=== PATIENT | male | born 1955 | race Caucasian/White ===

== ENCOUNTER 2020-10-09 06:40 | Day surgery (SDC) | payer MEDICARE, OTHER ==
[~2020-10-09] VITALS: Ht 182.9 cm; Wt 86.8 kg
[~2020-10-09 06:40] MED LIST: ADVIL200 MG PO; FLOMAX0.4 MG PO; LEVOFLOXACIN500 MG PO; LISINOPRIL-HCT1 EACH PO; OXYCODON-ACETA1 EAC2 PO; TAMSULOSIN HCL0.4 MG PO; TURMERIC500 M2 PO; ZESTORETIC 20-1 EAC1 PO
--- NOTE | 2020-10-09 09:37 | NUR ---
[facility]20 [facility]37 [facility]IVED IN PACU NON RESPONSIVE TO NOXIOUS STIMULI. ABD SOFT AND PASSING FLATUS. 0855 PT REACTIVE. SITTING UP IN BED WITH NO C/O'S. 0900 UP TO BATHROOM. VOIDED AND PASSING FLATUS. 0910 BACK AT BEDSIDE GETTING DRESSED. 0917 DC INSTRUCTIONS GIVEN. ALL QUESTIONS ANSWERED. LEFT VIA W/C.
--- NOTE | 2020-10-09 10:51 | OR ---
[facility] [address] [place], [place] [address] Signed DATE OF OPERATION: 10/09/2020 SURGEON: Raoul Massey MD PREOPERATIVE DIAGNOSES: 1. Tubular adenomas polyps in 2016. 2. Internal hemorrhoids. 3. Mild cirrhosis associated hepatitis C virus. 4. Negative Cologuard test in April 2019. POSTOPERATIVE DIAGNOSES: 1. 3 mm polyps at 18 cm (rectosigmoid junction). 2. Moderate internal hemorrhoids. PROCEDURE: Colonoscopy with cold biopsy. ESTIMATED BLOOD LOSS: None. INDICATIONS: Brandyn is a 64-year-old gentleman, asked to see me for a followup colonoscopy. He had lived in the [place] area previously. He has had his hepatitis C treated by his weigher production around 2016. Dr. Vane Norwood did his initial colonoscopy in December 2016. He had several tubular adenomatous polyps removed from his right colon. He is known to have internal hemorrhoids as well. He has utilized propofol in the past for his colonoscopy. He was asked to follow up in three years. He underwent a negative Cologuard test in April 2019. He also has chronic pain and uses CBD oil as well as marijuana. He has asymptomatic cholelithiasis. There is no family history of colon cancer or polyps. No specific lower GI complaints. In the office, I gave Brandyn a booklet on colonoscopy. He recalls the nature of that test quite well. There is risk including, but not limited to gas bloating, crampy abdominal pain, bleeding, perforation requiring surgery, and missed diagnosis. He also understands the need for monitored anesthesia care given his advanced medical issues. He had expressed understanding and wished to proceed. PROCEDURE NOTE: Brandyn was taken into our endoscopy suite and placed in the left lateral decubitus position. He was given IV propofol per our nurse social worker assistant. A digital rectal exam was performed and this was not particularly concerning. Very minimal in the external Electronically Signed By: RAOUL MASSEY MD 10/09/20 1051 PATIENT NAME: BRANDYN FINN OPERATIVE REPORT DATE OF : 53 REPORT #: [id number] PHYSICIAN: RAOUL MASSEY MD PCP: AVINASH FAGAN MD REPORT IS CONFIDENTIAL AND NOT TO BE RELEASED WITHOUT AUTHORIZATION [facility] [address], [place] [address] Signed hemorrhoids. Prostate was a little indurated, but not overly concerning. The adult colonoscope was then introduced and advanced around into the cecum under direct visualization of camera without difficulty. His prep was quite excellent. We could easily see the appendiceal orifice and the ileocecal valve. The scope was then slowly withdrawn. We took pictures throughout for photodocumentation. There was no diverticulosis. He had two tiny 3 mm hyperplastic appearing polyps at the rectosigmoid junction. There were easily removed with cold biopsy forceps. The rectum was unremarkable. Upon retroflexion of scope, he does have moderate internal hemorrhoid columns. After this, the gas was suctioned out and colonoscope removed. Brandyn tolerated the procedure quite well. RECOMMENDATIONS: I will see Brandyn back in my office in 7 to 14 days to review his results. I suspect he will be on the 5-year rotation given his personal history. Raoul Massey MD ALB/MODL /[id number] cc: MD Avinash Birmingham MD Copies: RAOUL MASSEY MD, MALCOLM MD ~ Electronically Signed By: RAOUL MASSEY MD 10/09/20 1051 PATIENT NAME: BRANDYN FINN OPERATIVE REPORT DATE OF : 53 REPORT #: [id number] PHYSICIAN: RAOUL MASSEY MD PCP: AVINASH FAGAN MD REPORT IS CONFIDENTIAL AND NOT TO BE RELEASED WITHOUT AUTHORIZATION
--- NOTE | 2020-10-10 11:52 | PATH ---
[facility] [address] [place], [place] [address] Signed SPECIMEN(S): A RECTAL POLYP AT 18 CM SPECIMEN SOURCE: A. RECTAL POLYP AT 18 CM CLINICAL HISTORY: History of polyps. Rectal polyps, internal hemorrhoids. MICROSCOPIC DESCRIPTION: Histologic sections of all submitted blocks are examined by light microscopy. These findings, together with the gross examination, support the pathologic diagnosis. FINAL PATHOLOGIC DIAGNOSIS: Rectum, polyp at 18 cm, polypectomy: - Fragments of hyperplastic polyp. - Negative for dysplasia or malignancy. NAL:cml:C2NR GROSS DESCRIPTION: The specimen, labeled "WONG, rectal polyp at 18 cm," is received in formalin and consists of two lima soft tissue fragments that measure 0.1 cm in greatest dimension. The specimen is entirely submitted in cassette (A1). JS (under the direct supervision of a pathologist) The Gross Description was prepared using a voice recognition system. The report was reviewed for accuracy; however, sound-alike word errors, addition and/or deletions may occur. If there is any question about this report, please contact Client Services. PERFORMING LABORATORY: The technical component was performed by [facility], [address] [place] [id number] (Director Of Student Life: Rox Herzog MD; CLIA# [id number]). Professional interpretation [facility], [address] [address] (CLIA# [id number]). Diagnostician: Dona Paige MD Pathologist Electronically Signed 10/10/2020 PATIENT NAME: SIGRID FINN PATHOLOGY DATE OF : 53 REPORT #: [id number] PHYSICIAN: [facility] PCP: WALLY FAGAN MD REPORT IS CONFIDENTIAL AND NOT TO BE RELEASED WITHOUT AUTHORIZATION [address] [place], [place] [address] Signed Copies: ~ PATIENT NAME: SIGRID FINN PATHOLOGY DATE OF : 53 REPORT #: [id number] PHYSICIAN: [facility] PCP: WALLY FAGAN MD REPORT IS CONFIDENTIAL AND NOT TO BE RELEASED WITHOUT AUTHORIZATION
== END 2020-10-09 09:17 | disposition home or self-care (01) ==
LOC: DS 06:40 → OPS 06:40 → DS 09:30
PROVIDERS: ATTEND Colon & Rectal Surgery
PROC: 0DBP8ZX Excision of Rectum, Via Natural or Artificial Opening Endoscopic, Diagnostic (ICD-10-PCS; principal; 2020-10-09 08:15)
DX: K62.1 Rectal polyp (principal); K64.0 First degree hemorrhoids; K74.60 Unspecified cirrhosis of liver; B19.20 Unspecified viral hepatitis C without hepatic coma; Z87.19 Personal history of other diseases of the digestive system; G89.29 Other chronic pain; J43.9 Emphysema, unspecified
CPT/HCPCS: 88305; J2001; J2704

== ENCOUNTER 2020-12-16 03:10 | Emergency (ER) | payer MEDICARE, OTHER ==
[~2020-12-16] VITALS: Ht 182.9 cm; Wt 84.4 kg
== END 2020-12-16 05:05 | disposition home or self-care (01) ==
LOC: ED 03:10
PROC: 0T2BX0Z Change Drainage Device in Bladder, External Approach (ICD-10-PCS; principal; 2020-12-16)
DX: R33.9 Retention of urine, unspecified (principal); I10 Essential (primary) hypertension; Z79.899 Other long term (current) drug therapy
CPT/HCPCS: 51702; 51798; 81001; 99283-25

== ENCOUNTER 2022-05-19 19:08 | Emergency (ER) | payer MEDICARE, OTHER ==
[~2022-05-19] VITALS: Ht 182.9 cm; Wt 84.0 kg
[2022-05-19] MEDS ORDERED: LACTULOSE10 GM/152 PO (22:20)
== END 2022-05-19 22:31 | disposition home or self-care (01) ==
LOC: ED 19:08
DX: K59.00 Constipation, unspecified (principal); I10 Essential (primary) hypertension
CPT/HCPCS: 36415; 74018; 80053; 85025; 96374; 99283-25; J1885

== ENCOUNTER 2022-05-25 11:42 | Emergency (ER) | payer MEDICARE, OTHER ==
[~2022-05-25] VITALS: Ht 182.9 cm; Wt 84.0 kg
[~2022-05-25 11:42] MED LIST changes: +LACTULOSE10 GM/152 PO
--- OUTSIDE RECORDS SUMMARY | 2022-05-25 11:44 | XMS ---
PreManage Notification: SIGRID FINN Security Exploration Manager Events No recent Security Events currently on file CRITERIA MET - [facility] - 2 Visits in 30 Days CARE PROVIDERS There are no care providers on record at this time. Rodolfo has no Care Guidelines for this patient. Carri VISIT COUNT (12 MO.) 2 [facility] [place] [facility] TOTAL 2 NOTE: Visits indicate total known visits. ED/C VISIT TRACKING (12 MO.) 05/25/2022 11:43 [facility] [place] TYPE: Emergency COMPLAINT: - UNABLE TO URINATE, CONSTIPATED 05/19/2022 19:09 [facility] [place] TYPE: Emergency COMPLAINT: - CONSTIPATION DIAGNOSES: - Constipation, unspecified - Essential (primary) hypertension INPATIENT VISIT TRACKING (12 MO.) No inpatient visits to display in this time frame [email or web address]
[2022-05-25] MEDS ORDERED: LISINOPRIL-HCT1 EACH PO (12:17)
== END 2022-05-25 13:45 | disposition home or self-care (01) ==
LOC: ED 11:42
DX: R33.9 Retention of urine, unspecified (principal); I10 Essential (primary) hypertension; Z79.899 Other long term (current) drug therapy
CPT/HCPCS: 36415; 51702; 80053; 83690; 85025; 99283-25; J1170

== ENCOUNTER 2023-09-09 20:10 | Inpatient (IN) | payer MEDICARE, OTHER ==
[~2023-09-09] VITALS: Ht 182.9 cm; Wt 83.9 kg
[~2023-09-09 20:10] MED LIST changes: +INDAPAMIDE1.25 MG PO; +IRBESARTAN150 MG PO
[2023-09-09] MEDS ORDERED: ondansetron HCL 4 MG/2 ML VIAL IV ONE (20:30)
[2023-09-09] MEDS ORDERED: SODIUM CHLORIDE 0.9% 1,000 ML IV SCH (20:45)
[2023-09-09] MEDS ORDERED: HYDROmorphone HCL 1 MG/ML SYR IV PRN ×2 (20:45→22:00)
[2023-09-09 20:54] LABS: ALBUMIN 4.1 g/dL (3.4-5.0); ALBUMIN/GLOBULIN RATIO 1.24 (1.1-2.4); ALKALINE PHOSPHATASE 62 U/L (46-116); ALT (SGPT) 17 U/L (14-59); ANION GAP 15.5 (7-21); AST (SGOT) 22 U/L (15-37); BILIRUBIN, TOTAL 1.1 ng/dL (0.2-1.0); BUN/CREATININE RATIO 21.21 (6.0-28.6); CALCIUM 9.1 mg/dL (8.5-10.1); CARBON DIOXIDE 24 mmol/L (21-32); CHLORIDE 101 mmol/L (98-107); CREATININE, SERUM 1.32 mg/dL (0.70-1.30); GLOMERULAR FILTRATION RATE,EST 59 mL/min (>60); POTASSIUM 3.5 mmol/L (3.5-5.1); PROTEIN, TOTAL 7.4 g/dL (6.4-8.2); UREA NITROGEN 28 mg/dL (7-18)
[2023-09-09 20:55] LABS: BASOPHILS 0.5 % (0-2); EOSINOPHILS 1.7 % (0-6); HEMATOCRIT 33.6 % (35.0-50.0); HEMOGLOBIN 11.9 g/dL (12.0-18.0); LYMPHOCYTES 19.6 % (24-44); MCH 33.4 (27-36); MCHC 35.5 g/dl (30-36); MCV 94.1 fl (81-99); MONOCYTES 7.2 % (0-12); PLATELET COUNT 158 K/uL (140-440); RBC 3.57 M/ul (4.3-5.7); RDW 12.8 (10.5-15.0)
[2023-09-09] MEDS ORDERED: LACTATED RINGER'S 1,000 ML IV SCH (22:00)
[2023-09-09] MEDS ORDERED: ondansetron HCL 4 MG/2 ML VIAL IV PRN (22:00)
--- NOTE | 2023-09-09 22:45 | NUR ---
pt arrived from ed via with ed rn denise, pt self transferred from wc to bed. admission completed by this rn, bed side report given then to primary rn koffi. iv site wnl, saline locked. janette at bedside, preparing to leave for the evening. call light in reach, poc discussed.
--- NOTE | 2023-09-09 22:50 | NUR ---
pt ARRIVED TO THE FLOOR VIA STRETCHER. pt TRANSFERED TO THE BED SBA. ADMISSION AND ASSESSMENT DONE. VITAL SIGNS DONE. MIDLINE INCISION CDI. pt DENIES ANY OTHER NEEDS AT THIS TIME. CALL LIGHT WITHIN REACH. IV ASSESSED, WNL. IVF STARTED, INFUSING PER ORDER, SEE MAR.
[2023-09-09 22:53] VITALS: BP 160/87
[2023-09-10] VITALS (10 sets, daily range): BP systolic 132–160; BP diastolic 79–89
--- NOTE | 2023-09-10 00:05 | NUR ---
FINANCIAL SALES ASSISTANT PUT PT ON CPOX. PT STATES NO FURTHER NEEDS AT THIS TIME. CALL LIGHT WITHIN REACH.
--- NOTE | 2023-09-10 01:12 | NUR ---
CALL LIGHT ANSWERED. PT NEEDED TO USE BATHROOM. PROPERTY ADMINISTRATOR SBA PT TO BATHROOM. URINE SAMPLE COLLECTED AND SENT TO LAB. PT BACK IN BED. PROPERTY ADMINISTRATOR RECONNECTED CPOX. PT STATES NO FURTHER NEEDS AT THIS TIME. CALL LIGHT PLACED WITHIN REACH.
[2023-09-10 01:14] LABS: BILIRUBIN, URINE NEGATIVE (negative); BLOOD/HGB, URINE NEGATIVE (Negative); KETONE, URINE NEGATIVE (Negative); LEUK ESTERASE, URINE NEGATIVE (negative); NITRITE, URINE NEGATIVE (negative)
[2023-09-10 01:23] LABS: EPITHELIAL CELLS, URINE SQUAMOUS 1+ /lpf (0-1+)
[2023-09-10 01:24] LABS: BACTERIA, URINE RARE /hpf (negative); CASTS, URINE NONE SEEN \\lpf; COLLECTION TYPE, URINE CLEAN CATCH; CRYSTALS, URINE NONE SEEN (0-1+); RED BLOOD CELLS, URINE 0-1 /hpf (0-5); REFLEX CULTURE, URINE No (No); WHITE BLOOD CELLS, URINE 0-1 /HPF (0-5)
--- NOTE | 2023-09-10 01:55 | NUR ---
CELL LEAD OBTIANED VITALS AND NO NEW INTAKE NOTED. PT STATES NO FURTHER NEEDS AT THIS TIME. CALL LIGHT WITHIN REACH.
--- NOTE | 2023-09-10 03:33 | NUR ---
pt REQUESTED PRN PAIN MEDICATION. PRN PAIN MEDICATION ADMINISTERED. pt DENIES ANY OTHER NEEDS AT THIS TIME. CALL LIGHT WITHIN REACH. CALL LIGHT WITHIN REACH.
--- NOTE | 2023-09-10 06:00 | NUR ---
pt RESTED IN THE BED MOST OF THE NIGHT. pt REQUESTED PRN PAIN MEDICATION WHEN NEEDED. SBA FOR LINE/TUBE MANAGEMENT. MIDLINE INCISION CDI.
[2023-09-10 06:05] LABS: BASOPHILS 0.9 % (0-2); LYMPHOCYTES 19.2 % (24-44); MCH 32.8 (27-36); MCHC 34.3 g/dl (30-36); MCV 95.6 fl (81-99); MONOCYTES 7.8 % (0-12); NEUTROPHILS 70.1 % (39-80); PLATELET COUNT 165 K/uL (140-440); RBC 3.66 M/ul (4.3-5.7); RDW 13.1 (10.5-15.0)
[2023-09-10] MEDS ORDERED: HYDROCODONE/APAP 10/325 1 TAB PO PRN (06:15)
[2023-09-10] MEDS ORDERED: HYDROmorphone HCL 1 MG/ML SYR IV PRN (06:15)
[2023-09-10] MEDS ORDERED: DEXTROSE 5% - LACTATED RINGERS 1,000 ML IV SCH (06:15)
[2023-09-10] MEDS ORDERED: ACETAMINOPHEN 325 MG TAB PO PRN (06:15)
[2023-09-10] MEDS ORDERED: ondansetron HCL 4 MG/2 ML VIAL IV PRN (06:15)
[2023-09-10] MEDS ORDERED: PROCHLORPERAZINE EDISYLATE 10 MG/2 ML VIAL IV PRN (06:15)
[2023-09-10] MEDS ORDERED: ACETAMINOPHEN 650 MG SUPP PR PRN (06:15)
[2023-09-10 06:21] LABS: ALBUMIN 3.5 g/dL (3.4-5.0); ALBUMIN/GLOBULIN RATIO 1.13 (1.1-2.4); ANION GAP 12.9 (7-21); BUN/CREATININE RATIO 21.18 (6.0-28.6); CALCIUM 8.3 mg/dL (8.5-10.1); CREATININE, SERUM 1.18 mg/dL (0.70-1.30); MAGNESIUM 1.6 mg/dL (1.8-2.4); PHOSPHORUS, INORGANIC 3.4 mg/dL (2.5-4.9); POTASSIUM 3.9 mmol/L (3.5-5.1); PROTEIN, TOTAL 6.6 g/dL (6.4-8.2)
--- NOTE | 2023-09-10 07:20 | CONS ---
[facility] [address] [place], [place] [address] Signed DATE OF CONSULTATION: 09/10/2023 CHIEF COMPLAINT: Epigastric abdominal pain. HISTORY OF PRESENT ILLNESS: Brandyn is a 67-year-old gentleman, who came to us just two days ago to repair his umbilical hernia. It was very straightforward. He had a fascial defect around 10, 12 mm. We used our typical mesh. We did have to amputate a small amount of omentum, which is quite common. He had been discharged to home. He had called the office concerned about constipation, nausea, and vomiting. He tried several different medications at home without success. He then came to emergency room for evaluation. In the emergency room, it was found that his labs were fine except his lipase was greater than 375. A CT scan was performed. He does have a gallbladder full of gallstones. The gallbladder wall is not thickened. The common bile duct is unremarkable. There is no inflammation of the pancreas. The rest of his labs were unremarkable. I have been asked by the ER physician to admit him with respect to the above. He has been admitted overnight with some IV fluid and he seems to be doing well. PAST MEDICAL HISTORY: Personal history of colonic polyps. Personal history hepatitis C that has been treated, kidney stones. He has borderline liver function tests. He has pulmonary emphysema and chronic pain. He has mild cirrhosis of the liver. He had a bladder injury during cystoscopy that required repair. We know the ascending aorta is about 4.25 cm. The left ventricular ejection fraction is 60%. PAST SURGICAL HISTORY: Multiple colonoscopies, repair of bladder laceration in May 2020. He has had a liver biopsy in 2000. He just had his umbilical hernia repair two days ago. SOCIAL HISTORY: He is . Dr. Avinash Shearer is his primary care provider. His is Maegan at [phone]. ALLERGIES: None. MEDICATIONS: His medications are irbesartan 150 mg p.o. at bedtime, and indapamide 1.25 mg p.o. q.a.m. REVIEW OF SYSTEMS: He had 10 systems reviewed, really no other issues that he mentioned today. Electronically Signed By: RAOUL KIRKPATRICK MD 09/10/23 0720 PATIENT NAME: BRANDYN FINN CONSULTATION DATE OF : 53 REPORT #: [id number] PHYSICIAN: RAOUL KIRKPATRICK MD PCP: AVINASH SHEARER MD REPORT IS CONFIDENTIAL AND NOT TO BE RELEASED WITHOUT AUTHORIZATION [facility] [address] [place] [address] Signed FAMILY HISTORY: His dad had emphysema. His mom had breast cancer. His brother has a history of cocaine use and hepatitis C. It sounds like one brother may have had cancer related to hepatitis B and/or lung cancer. PHYSICAL EXAMINATION: VITAL SIGNS: His blood pressure is 146/89, heart rate 69, respiratory rate 14, temperature 97.9, he is 95% on room air. He is 6 feet tall, 83 kg with a body mass index of 25. GENERAL: Brandyn is a 67-year-old gentleman, lying supine semi-recumbent in his hospital bed, watching TV. He is in no acute distress. He is not jaundiced. LUNGS: Clear to auscultation bilaterally. HEART: Regular rate and rhythm without murmurs. ABDOMEN: Generally flat, soft and nontender. He has some mild epigastric tenderness and some very mild expected incisional tenderness. Incisions without any local signs or symptoms of infection or drainage. LABORATORY DATA: His white blood count 7.4, hemoglobin 11.9, neutrophils 71. BUN 28, creatinine 1.32, glucose 122. Urinalysis negative. His alcohol was less than 3. Total bilirubin 1.1, AST 22, ALT 17, alkaline phosphatase 62, lipase greater than 375, albumin is 4.1. RADIOGRAPHIC STUDIES: CT scan and pelvis is reviewed. Unfortunately, I cannot see the images this morning as I could not connect to the computer. However, the radiologist describes multiple calcified gallstones in the gallbladder, but the gallbladder wall is not thickened. There is no pericholecystic fluid. The common bile duct is unremarkable and there is no inflammation to the pancreas. ASSESSMENT AND PLAN: Brandyn is a 67-year-old gentleman, who presents with what looks like possibly some mild gallstone related pancreatitis two days after his umbilical hernia surgery. It also could be related to indapamide, although he has taken that for quite some time. At this point, we are going to treat him conservatively with IV fluids and clear liquid diet and repeat his labs and we will follow him along. He is aware that if his gallstones are symptomatic, we could certainly take his gallbladder out on this admission. Otherwise we are going to see if we can treat him conservatively. He has expressed understanding and agrees above plan. Raoul Kirkpatrick MD Electronically Signed By: RAOUL KIRKPATRICK MD 09/10/23 0720 PATIENT NAME: BRANDYN FINN CONSULTATION DATE OF : 53 REPORT #: [id number] PHYSICIAN: RAOUL KIRKPATRICK MD PCP: AVINASH SHEARER MD REPORT IS CONFIDENTIAL AND NOT TO BE RELEASED WITHOUT AUTHORIZATION [address] [place] [address] Signed ALB/MODL /[id number] cc: MD Raoul Smith MD Patient Chart Copies: AVINASH SHEARER MD, ANDREW L MD ~ Electronically Signed By: RAOUL KIRKPATRICK MD 09/10/23 0720 PATIENT NAME: BRANDYN FINN CONSULTATION DATE OF : 53 REPORT #: [id number] PHYSICIAN: RAOUL KIRKPATRICK MD PCP: AVINASH SHEARER MD REPORT IS CONFIDENTIAL AND NOT TO BE RELEASED WITHOUT AUTHORIZATION
--- NOTE | 2023-09-10 07:25 | NUR ---
RECEIVED REPORT FROM LARY ARECHIGA. SECOND RN SKIN ASSESSMENT COMPLETED AT THIS TIME, MIDLINE INCISION EDGES WELL APPROXIMATED, NO REDNESS OR DRAINAGE PRESENT. PT STATES NO CURRENT NEEDS, CALL LIGHT WITHIN REACH.
[2023-09-10] MEDS ORDERED: LOSARTAN POTASSIUM 50 MG TAB PO SCH (09:00)
[2023-09-10] MEDS ORDERED: ENOXAPARIN SODIUM 40 MG/0.4 ML SYR SUB-Q SCH (09:00)
[2023-09-10] MEDS ORDERED: PANTOPRAZOLE SODIUM 40 MG/10 ML VIAL IV SCH (09:00)
--- NOTE | 2023-09-10 09:04 | NUR ---
SPOKE TO PATIENT ABOUT THE DISCHARGE PLAN. PATIENT'S DEMOGRAPHICS ARE CORRECT. PATIENT LIVES WITH HIS AND HAS FRIENDS AND FAMILY AVAILABLE TO HELP IF NEEDED. PATIENT DOES NOT WANT PLACEMENT, PATIENT DOES NOT USE DME. PATIENT DOES NOT HAVE FINANCIAL CONCERNS.PATIENT DRIVES AND DOES HIS OWN ADLS. PATIENT HAS NO DISCHARGE NEEDS AT THIS TIME.
--- NOTE | 2023-09-10 09:14 | NUR ---
med rec complete.
--- NOTE | 2023-09-10 10:30 | NUR ---
PT SEMIFOWLER. PT C/O NAUSEA AND RLQ AND LLQ PAIN, GIVEN PRN PAIN AND NAUSEA MEDICATION AT THIS TIME. ABDOMEN MILDLY DISTENDED, TENDER TO PALPATION, ACTIVE BOWEL TONES. PT STATES NO NEEDS AT THIS TIME, CALL LIGHT WITHIN REACH.
--- NOTE | 2023-09-10 10:41 | NUR ---
UR CLINICAL REVIEW: [facility]MN [facility] INPATIENT MEDICARE FROM OBS TO INPT 09/10/23 @ 0607 ORDER MATCHES STATUS NO AUTH REQUIRED PER MEDICARE RULES PLAN TO DC TO HOME WHEN STABLE
--- NOTE | 2023-09-10 11:44 | NUR ---
VISITED DURING SPIRITUAL CARE ROUNDS. PT APPEARED TO BE SLEEPING. DID NOT DISTURB. PROVIDED PRAYER.
--- NOTE | 2023-09-10 14:50 | NUR ---
IV WRAPPED FOR SHOWER, SHOWER SUPPLIES PROVIDED. PT STATES NO FURTHER NEEDS AT THIS TIME, CALL LIGHT WITHIN REACH.
--- NOTE | 2023-09-10 15:05 | NUR ---
PATIENT USED CALL LIGHT TO SAY HE NEEDED TO GET THE PHONE AND WASH HIS HANDS. ZINC PLATE GRAINER WENT INTO ROOM AND PATIENT WAS VERY FRUSTRATED WITH CARE THAT HAS BEEN PROVIDED TODAY. ZINC PLATE GRAINER HELPED PATIENT WITH ANSWERING PHONE. PATIENT THEN ACCUSED ZINC PLATE GRAINER OF EAVSDROPPING ON HIS CALL WITH HIS AFTER PHONE CALL WAS COMPLETED. ZINC PLATE GRAINER THEN ASKED WHAT HE NEEDED HELP WITH AND HE STATED THAT HE HAS BEEN ASKING FOR A SHOWER FOR HOURS AND THAT THE STAFF HERE HAS NOT BEEN HELPING HIM. PATIENT THEN PROCEEDED TO CALL ZINC PLATE GRAINER A "HALF ASS WORKER" AND ZINC PLATE GRAINER WANT TO BRING A NURSE INTO ROOM AT THIS TIME. RN TOOK OVER PATIENTS ROOM FROM THERE.
--- NOTE | 2023-09-10 15:10 | NUR ---
THIS RN NOTIFIED BY MOR MARTIN OF PT STATING THAT SHIELD INSTALLER IS LISTENING TO HIS PHONE CALL AFTER CALLING SHIELD INSTALLER TO ROOM. THIS RN ENTERS ROOM, PT STATES HE IS VERY FRUSTRATED D/T NOT BEING ABLE TO SHOWER YET TODAY AND BECAUSE HE IS COLD AND STATES THE STAFF HAS "NOT BEEN DOING ANYTHING ABOUT ANY OF IT". THIS RN STATES THAT SHE DOES NOT RECALL THESE ISSUES BEING BROUGHT UP PRIOR TO THIS CONVERSATION, STATES THAT SHE WILL BRING IN SHOWER SUPPLIES AND ASSIST HIM WITH GETTING READY FOR SHOWER. D/T PT BEING INDEPENDENT AT HOME AND D/T PT BEING STEADY ON FEET AND HAVING PAIN/NAUSEA LIMITED AT THIS TIME PT EDUCATED ON BEING INDEPENDENT IN THE ROOM LONG HE FEELS STEADY. PT VERBALIZES UNDERSTANDING OF USE OF CALL LIGHT AND TO CALL TO ASK FOR THINGS HE WANTS/NEEDS. PT EDUCATION ON TREATMENT OF STAFF, PT VERBALIZES UNDERSTANDING AND STATES HE IS "SORRY FOR BEING AN ASS" AND STATES HE IS "USED TO RUNNING THE SHOW, SO NOT BEING ABLE TO RUN THE SHOW HERE IS MAKING ME UPSET". PT EDUCATION ON POLICIES AND PROCEDURES UTILIZED ON THIS UNIT FOR SAFETY AND CARE, PT VERBALIZES UNDERSTANDING. SEE NOTE ABOUT SHOWER FOR CONTINUED CARE. CALL LIGHT WITHIN REACH.
--- NOTE | 2023-09-10 15:59 | NUR ---
MED REC COMPLETE
--- NOTE | 2023-09-10 19:10 | NUR ---
REPORT RECEIVED FROM KRISTIAN BARTH. pt RESTING IN THE BED. BOARD UPDATED. CALL LIGHT WITHIN REACH.
--- NOTE | 2023-09-10 20:50 | NUR ---
ASSESSMENT AND VITAL SIGNS DONE. pt C/O 10/08 PAIN. PRN PAIN MEDS ADMINISTERED. pt BOWEL TONES HYPOACTIVE. MIDLINE EDGES WILL APPROXAMATED. pt DENIES ANY OTHER NEEDS AT THIS TIME. CALL LIGHT WITHIN REACH.
--- NOTE | 2023-09-10 23:15 | NUR ---
pt RESTING IN THE BED WITH EYES CLOSED. RR EVEN AND UNLABORED. CALL LIGHT WITHIN REACH.
[2023-09-11] VITALS (7 sets, daily range): BP systolic 136–150; BP diastolic 74–89
--- NOTE | 2023-09-11 01:30 | NUR ---
pt RESTING IN THE BED WITH EYES CLOSED. RR EVEN AND UNLABORED. CALL LIGHT WITHIN REACH.
--- NOTE | 2023-09-11 04:44 | NUR ---
IN RM TO CHECK ON pt. pt C/O 10/08 PAIN. PRN PAIN MEDS ADMINISTERED. NO OTHER NEEDS AT THIS TIME. CALL LIGHT WITHIN REACH.
--- NOTE | 2023-09-11 05:32 | NUR ---
SKIVER UPPERS OR LININGS OBTAINED VITALS AND I&O. PT STATES NO FURTHER NEEDS AT THIS TIME. CALL LIGHT WITHIN REACH.
--- NOTE | 2023-09-11 07:15 | NUR ---
RECEIVED REPORT FROM LARY ARECHIGA. PT AWAKE IN BED, STATES NO NEEDS AT THIS TIME. PT STATES HE HAS BEEN PASSING GAS, BUT HAS NOT HAD A BM YET. CALL LIGHT WITHIN REACH.
[2023-09-11] MEDS ORDERED: PANTOPRAZOLE SODIUM 40 MG TABEC PO SCH (09:00)
--- NOTE | 2023-09-11 09:00 | NUR ---
PATIENT IN BED THIS AM. VITALS AND I/O'S COMPLETED, PATIENT HAS NO OTHER REQUESTS AT THIS TIME AND REFUSED ICE WATER AT THIS TIME. CALL LIGHT WITHIN REACH.
--- NOTE | 2023-09-11 10:00 | NUR ---
PT AWAKE IN BED, STATES HE IS HAVING HEADACHE AND SHOULDER PAIN AT 8/10, REQUESTS PRN PAIN MEDICATION, GIVEN. PT DENIES NAUSEA AT THIS TIME. ABDOMEN REMAINS MILDLY DISTENDED, TENDER TO PALPATION, BOWEL TONES ACTIVE. MIDLINE INCISION REMAINS DRY WITH EDGES WELL APPROXIMATED. PT REQUESTS FULL LIQUID SNACKS, GIVEN, EDUCATION ON TAKING IN FOOD SLOWLY, PT VERBALIZES UNDERSTANDING. PT STATES NO FURTHER NEEDS AT THIS TIME. CALL LIGHT WITHIN REACH.
--- NOTE | 2023-09-11 14:24 | NUR ---
PT REQUESTS ICE WATER, GIVEN. PT STATES NO FURTHER NEEDS AT THIS TIME, CALL LIGHT WITHIN REACH.
--- NOTE | 2023-09-11 15:42 | NUR ---
PT LYING IN BED AWAKE WATCHING TV. PT STATES NO PASSING GAS OR BM YET, BUT FEELS LIKE THINGS "MIGHT START MOVING SOON". PT DENIES PAIN AND NAUSEA AT THIS TIME. EDGES OF MIDLINE INCISION REMAIN WELL APPROXIMATED, NO CHANGE SINCE THIS MORNING. PT STATES HE IS COLD AND WOULD LIKE THERMOSTAT TURNED UP WELL A WARM BLANKET, THERMOSTAT TURNED UP, WARM BLANKET PROVIDED. PT STATES NO FURTHER NEEDS OR QUESTIONS AT THIS TIME, CALL LIGHT WITHIN REACH.
--- NOTE | 2023-09-11 18:45 | NUR ---
PT STATES HE IS FEELING NAUSEAS, DECLINES ANTINAUSEA MEDICATION AT THIS TIME. PT STATES NO CURRENT NEEDS, CALL LIGHT JEFFERY MAN.
--- NOTE | 2023-09-11 19:30 | NUR ---
REPORT RECEIVED FROM DAY SHIFT RN. PT LYING IN BED ALERT AND ORIENTED. DENIES NEEDS. WHITE BOARD UPDATED. CALL LIGHT IN REACH.
--- NOTE | 2023-09-11 19:36 | NUR ---
Board has been updated and call light has been placed within reach. No request from patient at this time.
--- NOTE | 2023-09-11 21:30 | NUR ---
EVENING ASSESSMENT COMPLETE. PT REPORTS SHOULDER/BACK PAIN 09/07. REFUSES PRN FOR PAIN WHEN OFFERED. REPORTS NAUSEA, REFUSES MEDS WHEN OFFERED. PT BELIEVES MEDICATIONS ARE CAUSING CONSTIPATION. ATTEMPTED TO EDUCATE. PT NOT RECEPTIVE. BOWEL TONES ACTIVE. ABD SLIGHTLY DISTENDED. PT REPORTS FLATUS. MIDLINE ABD INCISION WELL APPROXIMATED. NO REDNESS OR DRAINAGE NOTED. PT REPORTS TAKING ONLY SIPS OF WATER. IVF INFUSING PER ORDER. NO FURTHER NEEDS. CALL LIGHT IN REACH.
--- NOTE | 2023-09-12 00:10 | NUR ---
PATIENTS PUMP ALARMING. PATIENT IS RESTING IN BED WATCHING TV. PATIENT REPORTS NEEDING TO HAVE A BM IN THE NEXT COUPLE HOURS. PATIENT REPORTS FEELING WEAK AND HAS CONCERN ABOUT WALKING TO THE BR. BSC SET UP NEXT TO BED. PATIENT STATED "I WILL CALL WHEN I AM READY". NO FURTHER NEEDS NOTED. CALL LIGHT IN REACH.
--- NOTE | 2023-09-12 00:30 | NUR ---
PATIENT UP TO BEDSIDE COMMODE.
--- NOTE | 2023-09-12 00:58 | NUR ---
PT ABLE TO HAVE LARGE SOFT BROWN BM. BACK TO BED, AARON WELL. STATES HE FEELS BETTER AFTER BM. NO FURTHER NEEDS.
--- NOTE | 2023-09-12 02:06 | NUR ---
PATIENT INSISTS ON TAKING A SHOWER AT THIS TIME. SHOWER SET UP. PATIENT AMBULATES WELL WITH STEADY GAIT. THIS RN SUPERVISED ASSIST TO BATHROOM. HE HAS ANOTHER BM SOFT UNFORMED, NOT LIQUID.
--- NOTE | 2023-09-12 03:50 | NUR ---
PT RESTING IN BED WITH EYES CLOSED. RESPIRATIONS EVEN. CALL LIGHT IN REACH.
[2023-09-12 04:59] VITALS: BP 140/78
--- NOTE | 2023-09-12 05:08 | NUR ---
CALL LIGHT ANSWERED. PT STATES "I'M STARVING." PUDDING PROVIDED PER REQUEST. NO C/O PAIN OR NAUSEA AT THIS TIME. PT STATES "I FEEL SO MUCH BETTER THIS MORNING." VS AND I&O OBTAINED, WNL. ABD ASSESSMENT UNCHANGED. PT DENIES FURTHER NEEDS. CALL LIGHT IN REACH.
[2023-09-12 05:34] LABS: BASOPHILS 0.6 % (0-2); EOSINOPHILS 4.4 % (0-6); HEMOGLOBIN 11.5 g/dL (12.0-18.0); LYMPHOCYTES 17.9 % (24-44); MCH 33.6 (27-36); MCHC 35.9 g/dl (30-36); MCV 93.4 fl (81-99); NEUTROPHILS 68.1 % (39-80); PLATELET COUNT 144 K/uL (140-440); RBC 3.42 M/ul (4.3-5.7); RDW 12.7 (10.5-15.0)
[2023-09-12 05:50] LABS: ALBUMIN/GLOBULIN RATIO 0.91 (1.1-2.4); ANION GAP 9.5 (7-21); BILIRUBIN, TOTAL 1.3 ng/dL (0.2-1.0); BUN/CREATININE RATIO 10.07 (6.0-28.6); CALCIUM 8.6 mg/dL (8.5-10.1); CREATININE, SERUM 1.29 mg/dL (0.70-1.30); MAGNESIUM 1.5 mg/dL (1.8-2.4); PHOSPHORUS, INORGANIC 2.5 mg/dL (2.5-4.9); POTASSIUM 3.5 mmol/L (3.5-5.1); PROTEIN, TOTAL 6.3 g/dL (6.4-8.2)
--- NOTE | 2023-09-12 07:10 | NUR ---
RECEIVED REPORT FROM LARY FINNEY.
--- NOTE | 2023-09-12 07:35 | NUR ---
PT SITTING UP IN BED AWAKE, STATES NO NEEDS AT THIS TIME, CALL LIGHT WITHIN REACH.
--- NOTE | 2023-09-12 09:27 | NUR ---
PT AWAKE AND UP IN ROOM. PT DENIES PAIN OR NAUSEA AT THIS TIME. PT STATES HE HAS BEEN HAVING BMs SINCE LAST NIGHT, BOWEL TONES ACTIVE, ABDOMEN MILDLY DISTENDED, TENDER TO PALPATION. PT STATES NO NEEDS AT THIS TIME, STATES HE IS EXCITED TO GO HOME TODAY. IV DC'D WNL, WRAPPED IN GAUZE AND COBAN. DC PACKET AND EDUCATION GIVEN, PT VERBALIZES UNDERSTANDING, STATES NO QUESTIONS AT THIS TIME. PT'S CALLED TO COME FOR PT. PT STATES NO FURTHER NEEDS AT THIS TIME, CALL LIGHT WITHIN REACH.
[2023-09-12 09:43] VITALS: BP 143/86
--- NOTE | 2023-09-12 10:10 | NUR ---
PT UP TO WHEELCHAIR INDEPENDENTLY, WHEELED TO FRONT OF BUILDING BY NURSING PERSONEL.
--- NOTE | 2023-09-14 07:33 | DS ---
[facility] [address], [place] [address] Signed ADMISSION DATE: 09/10/2023 DISCHARGE DATE: 09/12/2023 FINAL DIAGNOSES: 1. Gallstone pancreatitis. 2. Constipation. 3. Nausea and vomiting. PROCEDURES: CT scan of abdomen and pelvis. HISTORY OF PRESENT ILLNESS: Brandyn is a 67-year-old gentleman, who came to us two days prior to this admission for repair of his umbilical hernia with mesh. It was an uncomplicated surgery. He had called from home complaining of constipation. He tried a number of different medications without success. He ended up coming to the emergency room. He was also having epigastric abdominal pain and nausea and vomiting. The laboratory work showed that his lipase was elevated. He also has multiple stones in the gallbladder on the CT scan. The gallbladder wall is not thickened. Common bile duct and pancreas are unremarkable. I have been asked to admit him as a general surgeon on-call. HOSPITAL COURSE: Brandyn was admitted as above and treated conservatively. He rapidly improved. His bilirubin always runs a little bit high because of his cirrhosis. The lipase normalized. He is tolerating his diet this morning. He has had four bowel movements. He said he feels much better. His anxiety certainly has abated. His incision is healing quite well without any local signs or symptoms of infection. The abdominal exam is benign. At this point, he said he is ready to go back home. DISCHARGE PLANS AND MEDICATIONS: Brandyn is going to be discharged home without any new prescriptions. He will resume his regular medications at home. He already has a prescription for pain medication from the surgery. He will follow a regular diet. He is welcome to do his activities of daily living including walking up and downstairs, showering and bathing as usual. He is not to do any heavy pushing, pulling, lifting over about 20 pounds. I will have him back in the office in a week or two for follow up. He has expressed understanding, agrees to above plan. Electronically Signed By: RAOUL KIRKPATRICK MD 09/14/23 0733 PATIENT NAME: BRANDYN FINN DISCHARGE SUMMARY DATE OF : 53 REPORT #: [id number] PHYSICIAN: RAOUL KIRKPATRICK MD PCP: WALLY FAGAN MD REPORT IS CONFIDENTIAL AND NOT TO BE RELEASED WITHOUT AUTHORIZATION [address] [address] Signed Raoul Kirkpatrick MD ALB/MODL /[id number] cc: MD Raoul Smith MD Copies: WALLY FAGAN MD, ANDREW L MD ~ Electronically Signed By: RAOUL KIRKPATRICK MD 09/14/23 0733 PATIENT NAME: BRANDYN FINN DISCHARGE SUMMARY DATE OF : 53 REPORT #: [id number] PHYSICIAN: RAOUL KIRKPATRICK MD PCP: WALLY FAGAN MD REPORT IS CONFIDENTIAL AND NOT TO BE RELEASED WITHOUT AUTHORIZATION
== END 2023-09-12 10:10 | disposition home or self-care (01) | DRG 439 ==
LOC: ED 20:10 → MS 20:11
PROVIDERS: Emergency Medicine; ADMIT Colon & Rectal Surgery; ATTEND Colon & Rectal Surgery
DX: K85.10 Biliary acute pancreatitis without necrosis or infection (principal); K42.0 Umbilical hernia with obstruction, without gangrene; K59.00 Constipation, unspecified; I10 Essential (primary) hypertension; K74.60 Unspecified cirrhosis of liver; C61 Malignant neoplasm of prostate; F12.90 Cannabis use, unspecified, uncomplicated; J43.9 Emphysema, unspecified; G89.29 Other chronic pain; Z98.890 Other specified postprocedural states; Z79.899 Other long term (current) drug therapy; Z87.442 Personal history of urinary calculi
CPT/HCPCS: 36415; 74177; 80053; 81001; 83690; 83735; 84100; 85025; 96375; 96376; 99285-25; A9270; C9113; G0378; G0480; J1170; J1650; J2405; J7030; J7121; Q9967